=== PATIENT | male | born 1975 | race Caucasian/White ===

== ENCOUNTER 2019-03-23 08:08 | Emergency (ER) | payer SELFPAY ==
--- NOTE | 2019-03-23 08:24 | EDM.PDOC ---
ED HPI GENERAL MEDICAL PROBLEM - General Chief Complaint: ENT Problem Stated Complaint: ABSCESS TOOTH ON RIGHT SIDE Time Seen by Provider: 03/23/19 08:15 Source of Information: Reports: Patient History Limitations: Reports: No Limitations - History of Present Illness INITIAL COMMENTS - FREE TEXT/NARRATIVE: The patient presents with a dental abscess. He said he broke a filling off a couple days ago and the pain has increased and now he has swelling to the right lower front jaw. He has no fever or chills. He has no other symptoms. Onset: Gradual Duration: Day(s): Location: Reports: Face Quality: Reports: Sharp Severity: Severe Improves with: Reports: None Worsens with: Reports: None Associated Symptoms: Reports: No Other Symptoms Right Face/Facial Pain Score (Numeric/FACES): 10 - Related Data Allergies Allergy/AdvReac Type Severity Reaction Status Date / Time No Known Allergies Allergy Verified 03/23/19 08:19 Home Meds: Home Meds Hydrocodone/Acetaminophen [Hydrocodon-Acetaminophen 5-325] 1 - 2 each PO Q6HR PRN #20 tablet 03/23/19 [Rx] Montelukast [Singulair] 10 mg PO DAILY 03/23/19 [History] Penicillin V Potassium 500 mg PO Q6HR #40 tab 03/23/19 [Rx] ED ROS ENT - Review of Systems Review Of Systems: See Below Constitutional: Reports: No Symptoms HEENT: Reports: Dental Pain Respiratory: Reports: No Symptoms Cardiovascular: Reports: No Symptoms Endocrine: Reports: No Symptoms GI/Abdominal: Reports: No Symptoms ED EXAM, ENT - Physical Exam Exam: See Below Exam Limited By: No Limitations General Appearance: Alert, No Apparent Distress Ears: Normal External Exam Nose: Normal Inspection Mouth/Throat: Other (Edema with pain upon palpation to the right front mandible with pain upon palpation to the premolar in the right lower jaw.) Course - Vital Signs Last Recorded V/S: Last Vital Signs Temp 97.0 F 03/23/19 08:15 Pulse 120 H 03/23/19 08:15 Resp 19 03/23/19 08:15 BP 154/99 H 03/23/19 08:15 Pulse Ox 100 03/23/19 08:15 - Orders/Labs/Meds Orders: Active Orders 24 hr Category Date Time Status cefTRIAXone 1 GM with Lidocaine 1% 2.1 ML IM Med 03/23/19 08:30 Ordered cefTRIAXone [Rocephin] 1 gm Lidocaine 1% [Xylocaine 1%] 2.1 ml IM Q24H - Re-Assessments/Exams Free Text/Narrative Re-Assessment/Exam: 03/23/19 08:21 I ordered a shot of rocephin and I will get him on some pen VK and hydrocodone. Departure - Departure Time of Disposition: 08:25 Disposition: Home, Self-Care 01 Condition: Good Clinical Impression: Dental abscess, Pain, dental - Discharge Information *PRESCRIPTION DRUG MONITORING PROGRAM REVIEWED*: No *COPY OF PRESCRIPTION DRUG MONITORING REPORT IN PATIENT NANCY: No Prescriptions: Hydrocodone/Acetaminophen [Hydrocodon-Acetaminophen 5-325] 1 - 2 each PO Q6HR PRN #20 tablet PRN Reason: Pain Penicillin V Potassium 500 mg PO Q6HR #40 tab Referrals: PCP,Not In Area [Primary Care Provider] - Additional Instructions: Take the penicillin 4 times per day. Take the hydrocodone as needed for pain. You may also try motrin or aleve. Put warm compress on the affected area at least 3 times per day for 15 minutes. Follow up with a dentist this week. Please return if you are worse. - My Orders Last 24 Hours: My Active Orders 03/23/19 08:30 cefTRIAXone 1 GM with Lidocaine 1% 2.1 ML IM cefTRIAXone [Rocephin] 1 gm Lidocaine 1% [Xylocaine 1%] 2.1 ml IM Q24H - Assessment/Plan Last 24 Hours: My Active Orders 03/23/19 08:30 cefTRIAXone 1 GM with Lidocaine 1% 2.1 ML IM cefTRIAXone [Rocephin] 1 gm Lidocaine 1% [Xylocaine 1%] 2.1 ml IM Q24H
[2019-03-23] MEDS ORDERED: cefTRIAXone 1 GM, Lidocaine 1% 2.1 ML IM SCH ×2 (08:30)
== END 2019-03-23 08:38 | disposition home or self-care (01) ==
LOC: JD.ED 08:08
DX: K04.7 Periapical abscess without sinus (principal)
CPT/HCPCS: 96372; 99282; J0696; J2001

== ENCOUNTER 2019-07-01 11:39 | Emergency (ER) | payer SELFPAY ==
[~2019-07-01 11:39] MED LIST: Insulin Glarg,Human.Rec.Analog 100 Unit/ML SUBCUT SCH; Insulin Lispro 100 Units/ML 3 ML Vial SUBCUT SCH
[2019-07-01] MEDS ORDERED: Sodium Chloride 0.9% 1,000 ML IV SCH ×3 (12:30→17:45)
--- NOTE | 2019-07-01 12:34 | EDM.PDOC ---
ED HPI GENERAL MEDICAL PROBLEM - General Chief Complaint: Diabetic Complaint Stated Complaint: DIABETIC/HIGH BLOOD SUGAR Time Seen by Provider: 07/01/19 12:28 Source of Information: Reports: Patient History Limitations: Reports: No Limitations - History of Present Illness INITIAL COMMENTS - FREE TEXT/NARRATIVE: 43-year-old male presents to the ED for evaluation of signs and symptoms of diabetes. He was diagnosed with type 2 diabetes at age 42. He was on Trjenta tabs and took regular insulin prn for elevated blood sugars up until he moved to [place] in December of last year. He therefore has been off all medications since December. Sugars are often running over 300. Today they were 565. His gut nausea vomiting and very lightheaded dizzy when standing. Severe polyuria and polydipsia. Nurses took his sugar here and it's greater than 400. He does have a broken tooth that is causing pain right lower first bicuspid tooth. He does not appear to be actively infected about a third of the tooth is gone due to fracture. Onset: Gradual (Sugars have been gradually escalating over the last couple of weeks but markedly elevated today with a blood sugar reported at home of 567.) Onset Date: 07/01/19 (Initial diagnosis of type 2 diabetes at age 42 year ago.) Duration: Day(s):, Getting Worse Location: Reports: Generalized Quality: Reports: Other (Otherwise weakness with associated development of nausea and vomiting. This was predated by severe polyuria polydipsia due to uncontrolled type 2 diabetes.) Severity: Moderate Improves with: Reports: None Worsens with: Reports: None Context: Denies: Activity, Exercise, Lifting, Sick Contact, Trauma, Other Associated Symptoms: Reports: Malaise, Nausea/Vomiting, Weakness (Today). Denies: No Other Symptoms, Confusion, Chest Pain, Cough, cough w sputum, Diaphoresis, Fever/Chills, Headaches, Loss of Appetite, Rash, Seizure, Shortness of Breath, Syncope Treatments CREDIT CARD ANALYST: Reports: Other (see below) (None.) Back Pain Score (Numeric/FACES): 8 - Related Data Allergies Allergy/AdvReac Type Severity Reaction Status Date / Time No Known Allergies Allergy Verified 07/01/19 11:53 Home Meds: Home Meds Insulin Glarg,Human.Rec.Analog [Lantus Solostar] 12 unit SUBCUT DAILY #1 pen 12/13 [Rx] Past Medical History HEENT History: Reports: Impaired Vision Cardiovascular History: Reports: None Respiratory History: Reports: None Gastrointestinal History: Reports: None Genitourinary History: Reports: None Neurological History: Reports: None Psychiatric History: Reports: None Endocrine/Metabolic History: Reports: Diabetes, Type II, Obesity/BMI 30+ Hematologic History: Reports: None Immunologic History: Reports: None Oncologic (Cancer) History: Reports: None Dermatologic History: Reports: None - Infectious Disease History Infectious Disease History: Reports: None - Past Surgical History Musculoskeletal Surgical History: Reports: Arthroscopic Knee Social & Family History - Tobacco Use Smoking Status *Q: Never Smoker - Caffeine Use Caffeine Use: Reports: Coffee - Recreational Drug Use Recreational Drug Use: No - Living Situation & Occupation Living situation: Reports: Occupation: Employed (Self-employed) ED ROS GENERAL - Review of Systems Review Of Systems: See Below Constitutional: Reports: Malaise, Weakness, Fatigue, Weight Loss. Denies: Fever , Chills HEENT: Reports: Dental Pain (He has pain coming from his right lower first bicuspid tooth for the last few days.) Respiratory: Reports: No Symptoms Cardiovascular: Reports: Dyspnea on Exertion, Lightheadedness. Denies: Blood Pressure Problem, Claudication, Edema, Orthopnea Endocrine: Reports: High Glucose, Polydypsia, Polyuria GI/Abdominal: Reports: Other : Reports: Frequency (No previous abdominal surgeries.), Other Musculoskeletal: Reports: No Symptoms (Nocturia 4.) Skin: Reports: No Symptoms Neurological: Reports: Dizziness Psychiatric: Reports: No Symptoms (Lightheaded and dizzy with standing today.) Hematologic/Lymphatic: Reports: No Symptoms Immunologic: Reports: No Symptoms ED EXAM GENERAL NO PERIP PULSE - Physical Exam Exam: See Below Exam Limited By: No Limitations General Appearance: Alert, WD/WN, No Apparent Distress, Other (Temperatures 36.0 which is not likely true. Heart rate at the bedside was 125. Respiratory distress 20 with O2 sats of 96% on room air. BP slightly elevated at 127/97. I do not smell ketones on the patient's breath.) Eye Exam: Bilateral Eye: Normal Inspection Throat/Mouth: Other Head: Atraumatic, Normocephalic (Tongue is dry and coated and shrunken.) Neck: Normal Inspection, Supple, Non-Tender, Full Range of Motion. No: Carotid Bruit, Lymphadenopathy (L), Lymphadenopathy (R) Respiratory/Chest: No Respiratory Distress, Lungs Clear, Normal Breath Sounds, No Accessory Muscle Use, Respiratory Distress (Mild tachypnea) Cardiovascular: Normal Peripheral Pulses, No Edema, No Gallop (Resting tachycardia), No Murmur, No Rub, Tachycardia GI/Abdominal: Normal Bowel Sounds, Soft, Non-Tender, No Organomegaly, No Abnormal Bruit, No Mass, Pelvis Stable, Other (Mildly obese. No surgical scars) Back Exam: Normal Inspection, Full Range of Motion. No: CVA Tenderness (L), CVA Tenderness (R) Extremities: Normal Inspection, Normal Range of Motion, Non-Tender. No: Pedal Edema Neurological: Alert, Oriented, CN II-XII Intact, Normal Cognition Psychiatric: Normal Affect, Normal Mood Skin Exam: Warm, Dry, Intact, Normal Color, No Rash EKG INTERPRETATION EKG Date: 07/01/19 Time: 12:53 Rhythm: NSR Rate (Beats/Min): 97 [place]: LAD-Left [place] Deviation P-Wave: Enlarged (-27) QRS: Other (consider left atrial hypertrophy pattern Q waves leads V1 and V2 consider old anteroseptal myocardial infarction. Also Q waves in lead 3 and likely and aVF consider old inferior wall myocardial infarction. Diffuse mildly decreased voltage in the limb leads.) ST-T: Normal QT: Normal EKG Interpretation Comments: Abnormal ECG. Course - Vital Signs Last Recorded V/S: Last Vital Signs Temp 36.0 C 07/01/19 11:49 Pulse 125 H 07/01/19 11:49 Resp 20 07/01/19 11:49 BP 127/97 H 07/01/19 11:49 Pulse Ox 96 07/01/19 11:49 - Orders/Labs/Meds Orders: Active Orders 24 hr Category Date Time Status EKG Documentation Completion [RC] STAT Care 07/01/19 12:30 Active Insulin Lispro [HumaLOG] Med 07/01/19 00:00 Active 0 unit SUBCUT ASDIRECTED Medication Orders Insulin Human Lispro (Humalog) 0 unit SUBCUT ASDIRECTED Stop: 07/15/19 23:59 Labs: Laboratory Tests 07/01/19 07/01/19 07/01/19 Range/Units 12:10 12:10 12:10 WBC 8.46 (4.23-9.07) K/mm3 RBC 5.79 (4.63-6.08) M/mm3 Hgb 17.8 H (13.7-17.5) gm/dl Hct 48.5 (40.1-51.0) % MCV 83.8 (79.0-92.2) fl MCH 30.7 (25.7-32.2) pg MCHC 36.7 H (32.2-35.5) g/dl RDW Std Deviation 37.7 (35.1-43.9) fL Plt Count 203 (163-337) K/mm3 MPV 9.3 L (9.4-12.3) fl Neutrophils % (Manual) 64 H (40-60) % Band Neutrophils % 0 (0-10) % Lymphocytes % (Manual) 27 (20-40) % Atypical Lymphs % 0 % Monocytes % (Manual) 7 (2-10) % Eosinophils % (Manual) 2 (0.8-7.0) % Basophils % (Manual) 0 L (0.2-1.2) Platelet Estimate Adequate RBC Morph Comment Normal ESR 7 (0-15) mm/hr PT (9.7-12.0) SECONDS INR Sodium 133 L (136-145) mEq/L Potassium 4.3 (3.5-5.1) mEq/L Chloride 99 (98-107) mEq/L Carbon Dioxide 21 (21-32) mEq/L Anion Gap 17.3 H (5-15) BUN 16 (7-18) mg/dL Creatinine 1.0 (0.7-1.3) mg/dL Est Cr Clr Drug Dosing 97.21 mL/min Estimated GFR (MDRD) > 60 (>60) mL/min BUN/Creatinine Ratio 16.0 (14-18) Glucose 470 H (74-106) mg/dL POC Glucose (70-105) mg/dL Hemoglobin A1c (4.50-6.20) % Serum Osmolality 302 H (280-300) mosm/kg Lactic Acid (0.4-2.0) mmol/L Calcium 8.5 (8.5-10.1) mg/dL Phosphorus 3.3 (2.6-4.7) mg/dL Magnesium 1.8 (1.8-2.4) mg/dl Total Bilirubin 0.8 (0.2-1.0) mg/dL AST 22 (15-37) U/L ALT 46 (16-63) U/L Alkaline Phosphatase 93 (46-116) U/L Troponin I < 0.017 (0.00-0.056) ng/mL C-Reactive Protein 0.3 (<1.0) mg/dL Total Protein 7.0 (6.4-8.2) g/dl Albumin 3.7 (3.4-5.0) g/dl Globulin 3.3 gm/dL Albumin/Globulin Ratio 1.1 (1-2) TSH 3rd Generation 0.670 (0.358-3.74) uIU/mL Urine Color (Yellow) Urine Appearance (Clear) Urine pH (5.0-8.0) Ur Specific [place] (1.005-1.030) Urine Protein (Negative) Urine Glucose (UA) (Negative) Urine Ketones (Negative) Urine Occult Blood (Negative) Urine Nitrite (Negative) Urine Bilirubin (Negative) Urine Urobilinogen (0.2-1.0) Ur Leukocyte Esterase (Negative) Urine RBC (0-5) /hpf Urine WBC (0-5) /hpf Ur Squamous Epith Cells (0-5) /hpf Urine Bacteria (FEW) /hpf Urine Mucus (FEW) /hpf Ketones (0.0-0.3) mM 07/01/19 07/01/19 07/01/19 Range/Units 12:10 12:10 12:10 WBC (4.23-9.07) K/mm3 RBC (4.63-6.08) M/mm3 Hgb (13.7-17.5) gm/dl Hct (40.1-51.0) % MCV (79.0-92.2) fl MCH (25.7-32.2) pg MCHC (32.2-35.5) g/dl RDW Std Deviation (35.1-43.9) fL Plt Count (163-337) K/mm3 MPV (9.4-12.3) fl Neutrophils % (Manual) (40-60) % Band Neutrophils % (0-10) % Lymphocytes % (Manual) (20-40) % Atypical Lymphs % % Monocytes % (Manual) (2-10) % Eosinophils % (Manual) (0.8-7.0) % Basophils % (Manual) (0.2-1.2) Platelet Estimate RBC Morph Comment ESR (0-15) mm/hr PT 10.1 (9.7-12.0) SECONDS INR < 0.93 Sodium (136-145) mEq/L Potassium (3.5-5.1) mEq/L Chloride (98-107) mEq/L Carbon Dioxide (21-32) mEq/L Anion Gap (5-15) BUN (7-18) mg/dL Creatinine (0.7-1.3) mg/dL Est Cr Clr Drug Dosing mL/min Estimated GFR (MDRD) (>60) mL/min BUN/Creatinine Ratio (14-18) Glucose (74-106) mg/dL POC Glucose (70-105) mg/dL Hemoglobin A1c 8.90 H (4.50-6.20) % Serum Osmolality (280-300) mosm/kg Lactic Acid (0.4-2.0) mmol/L Calcium (8.5-10.1) mg/dL Phosphorus (2.6-4.7) mg/dL Magnesium (1.8-2.4) mg/dl Total Bilirubin (0.2-1.0) mg/dL AST (15-37) U/L ALT (16-63) U/L Alkaline Phosphatase (46-116) U/L Troponin I (0.00-0.056) ng/mL C-Reactive Protein (<1.0) mg/dL Total Protein (6.4-8.2) g/dl Albumin (3.4-5.0) g/dl Globulin gm/dL Albumin/Globulin Ratio (1-2) TSH 3rd Generation (0.358-3.74) uIU/mL Urine Color (Yellow) Urine Appearance (Clear) Urine pH (5.0-8.0) Ur Specific [place] (1.005-1.030) Urine Protein (Negative) Urine Glucose (UA) (Negative) Urine Ketones (Negative) Urine Occult Blood (Negative) Urine Nitrite (Negative) Urine Bilirubin (Negative) Urine Urobilinogen (0.2-1.0) Ur Leukocyte Esterase (Negative) Urine RBC (0-5) /hpf Urine WBC (0-5) /hpf Ur Squamous Epith Cells (0-5) /hpf Urine Bacteria (FEW) /hpf Urine Mucus (FEW) /hpf Ketones 0.31 (0.0-0.3) mM 07/01/19 07/01/19 07/01/19 Range/Units 12:42 12:45 15:48 WBC (4.23-9.07) K/mm3 RBC (4.63-6.08) M/mm3 Hgb (13.7-17.5) gm/dl Hct (40.1-51.0) % MCV (79.0-92.2) fl MCH (25.7-32.2) pg MCHC (32.2-35.5) g/dl RDW Std Deviation (35.1-43.9) fL Plt Count (163-337) K/mm3 MPV (9.4-12.3) fl Neutrophils % (Manual) (40-60) % Band Neutrophils % (0-10) % Lymphocytes % (Manual) (20-40) % Atypical Lymphs % % Monocytes % (Manual) (2-10) % Eosinophils % (Manual) (0.8-7.0) % Basophils % (Manual) (0.2-1.2) Platelet Estimate RBC Morph Comment ESR (0-15) mm/hr PT (9.7-12.0) SECONDS INR Sodium (136-145) mEq/L Potassium (3.5-5.1) mEq/L Chloride (98-107) mEq/L Carbon Dioxide (21-32) mEq/L Anion Gap (5-15) BUN (7-18) mg/dL Creatinine (0.7-1.3) mg/dL Est Cr Clr Drug Dosing mL/min Estimated GFR (MDRD) (>60) mL/min BUN/Creatinine Ratio (14-18) Glucose 323 H (74-106) mg/dL POC Glucose (70-105) mg/dL Hemoglobin A1c (4.50-6.20) % Serum Osmolality (280-300) mosm/kg Lactic Acid 1.4 (0.4-2.0) mmol/L Calcium (8.5-10.1) mg/dL Phosphorus (2.6-4.7) mg/dL Magnesium (1.8-2.4) mg/dl Total Bilirubin (0.2-1.0) mg/dL AST (15-37) U/L ALT (16-63) U/L Alkaline Phosphatase (46-116) U/L Troponin I (0.00-0.056) ng/mL C-Reactive Protein (<1.0) mg/dL Total Protein (6.4-8.2) g/dl Albumin (3.4-5.0) g/dl Globulin gm/dL Albumin/Globulin Ratio (1-2) TSH 3rd Generation (0.358-3.74) uIU/mL Urine Color Yellow (Yellow) Urine Appearance Clear (Clear) Urine pH 6.0 (5.0-8.0) Ur Specific [place] 1.025 (1.005-1.030) Urine Protein Negative (Negative) Urine Glucose (UA) 2+ H (Negative) Urine Ketones Negative (Negative) Urine Occult Blood Negative (Negative) Urine Nitrite Negative (Negative) Urine Bilirubin Negative (Negative) Urine Urobilinogen 0.2 (0.2-1.0) Ur Leukocyte Esterase Negative (Negative) Urine RBC 0-5 (0-5) /hpf Urine WBC 0-5 (0-5) /hpf Ur Squamous Epith Cells 0-5 (0-5) /hpf Urine Bacteria Few (FEW) /hpf Urine Mucus Few (FEW) /hpf Ketones (0.0-0.3) mM 07/01/19 07/01/19 Range/Units 17:35 18:35 WBC (4.23-9.07) K/mm3 RBC (4.63-6.08) M/mm3 Hgb (13.7-17.5) gm/dl Hct (40.1-51.0) % MCV (79.0-92.2) fl MCH (25.7-32.2) pg MCHC (32.2-35.5) g/dl RDW Std Deviation (35.1-43.9) fL Plt Count (163-337) K/mm3 MPV (9.4-12.3) fl Neutrophils % (Manual) (40-60) % Band Neutrophils % (0-10) % Lymphocytes % (Manual) (20-40) % Atypical Lymphs % % Monocytes % (Manual) (2-10) % Eosinophils % (Manual) (0.8-7.0) % Basophils % (Manual) (0.2-1.2) Platelet Estimate RBC Morph Comment ESR (0-15) mm/hr PT (9.7-12.0) SECONDS INR Sodium (136-145) mEq/L Potassium (3.5-5.1) mEq/L Chloride (98-107) mEq/L Carbon Dioxide (21-32) mEq/L Anion Gap (5-15) BUN (7-18) mg/dL Creatinine (0.7-1.3) mg/dL Est Cr Clr Drug Dosing mL/min Estimated GFR (MDRD) (>60) mL/min BUN/Creatinine Ratio (14-18) Glucose (74-106) mg/dL POC Glucose 369 H 339 H (70-105) mg/dL Hemoglobin A1c (4.50-6.20) % Serum Osmolality (280-300) mosm/kg Lactic Acid (0.4-2.0) mmol/L Calcium (8.5-10.1) mg/dL Phosphorus (2.6-4.7) mg/dL Magnesium (1.8-2.4) mg/dl Total Bilirubin (0.2-1.0) mg/dL AST (15-37) U/L ALT (16-63) U/L Alkaline Phosphatase (46-116) U/L Troponin I (0.00-0.056) ng/mL C-Reactive Protein (<1.0) mg/dL Total Protein (6.4-8.2) g/dl Albumin (3.4-5.0) g/dl Globulin gm/dL Albumin/Globulin Ratio (1-2) TSH 3rd Generation (0.358-3.74) uIU/mL Urine Color (Yellow) Urine Appearance (Clear) Urine pH (5.0-8.0) Ur Specific [place] (1.005-1.030) Urine Protein (Negative) Urine Glucose (UA) (Negative) Urine Ketones (Negative) Urine Occult Blood (Negative) Urine Nitrite (Negative) Urine Bilirubin (Negative) Urine Urobilinogen (0.2-1.0) Ur Leukocyte Esterase (Negative) Urine RBC (0-5) /hpf Urine WBC (0-5) /hpf Ur Squamous Epith Cells (0-5) /hpf Urine Bacteria (FEW) /hpf Urine Mucus (FEW) /hpf Ketones (0.0-0.3) mM Meds: Medications Generic Name Dose Route Start Last Admin Trade Name Freq PRN Reason Stop Dose Admin Insulin Human Lispro 0 unit 07/01/19 00:00 Humalog SUBCUT 07/15/19 23:59 ASDIRECTED Discontinued Medications Generic Name Dose Route Start Last Admin Trade Name Earlq PRN Reason Stop Dose Admin Sodium Chloride 1,000 mls @ 999 mls/hr 07/01/19 12:30 07/01/19 12:42 Normal Saline IV 999 mls/hr ASDIRECTED VICKY Administration Insulin Human Regular 100 unit 100 mls @ 217.72 mls/hr 07/01/19 14:15 / Sodium Chloride IV TITRATE VICKY Protocol 2 UNITS/KG/HR Sodium Chloride 1,000 mls @ 999 mls/hr 07/01/19 14:15 07/01/19 14:37 Normal Saline IV 999 mls/hr ASDIRECTED VICKY Administration Insulin Human Regular 100 unit 100 mls @ 2 mls/hr 07/01/19 14:45 07/01/19 14: 49 / Sodium Chloride IV 2 unit/hr ASDIRECTED VICKY 2 mls/hr Administration 2 UNIT/HR Sodium Chloride 1,000 mls @ 1,000 mls/hr 07/01/19 17:45 07/01/19 17:45 Normal Saline IV 1,000 mls/hr ASDIRECTED VICKY Administration Insulin Glargine 12 unit 07/01/19 00:00 Lantus SUBCUT 09/22/19 23:59 DAILY Insulin Glargine 10 unit 07/01/19 17:55 07/01/19 18:08 Lantus SUBCUT 07/01/19 17:56 10 units ONETIME ONE Administration Metoclopramide HCl 10 mg 07/01/19 12:37 07/01/19 12:42 Reglan IVPUSH 07/01/19 12:38 10 mg ONETIME ONE Administration - Radiology Interpretation Free Text/Narrative:: 43-year-old male who is diagnosed with a type 2 diabetes at age 42. He is now 41-1/2. He was placed on Tradjenta tablets and use regular insulin 10-15 units per meal when necessary basis for sugar control. He presents because of a blood sugar 565 at home this morning. Blood sugar here was greater than 400. He has all the signs symptoms of diabetes with polyuria polydipsia. He states his sugars were running 2-300 over the last 4-6 months but for whatever reason of slipped up into the 4 500s in the last week. Associated development of nausea and vomiting this morning likely due to acidosis. He is not ketotic. An IV normal saline at open. Labs to be collected including a glycosylated protein magnesium, and phosphorus level. - Re-Assessments/Exams Free Text/Narrative Re-Assessment/Exam: 07/01/19 13:10 Hematology is back showing a normal white count at 8.46. Differential shows 64% neutrophils and no bands. Hemoglobin is elevated at 17.8 with hematocrit of 48.5 indicating some degree of hemoconcentration. Platelet count is 203,000. PT 10.1 with an INR of less than 0.9. Is x-ray reveals no significant cardiomegaly. Diffuse vascular congestion pattern. Right pulmonary artery is mildly prominent. 07/01/19 14:10 Sedimentation rate came back at 7. Sodium is 133 slightly low potassium 4.3. Chloride is 99 with a bicarbonate 21. Anion gap is mildly elevated at 17.3. BUN is 16 with a creatinine of 1.0. Estimated GFR is greater than 60. Glucose is 470. Hemoglobin A1c is 8.90. Serum osmolality slightly elevated at 302. Lactic acid 1.4 calcium 8.5 phosphorus is 3.3. Magnesium is 1.8 with a bilirubin of 0.8. AST is 22 with an ALT of 46. Alk phosphatase is 93. Troponin I is less than 0.017. C-reactive protein is 0.3. Total protein is 7.0 with an albumin fraction of 3.7. TSH is 0.670 normal. Urinalysis shows 2+ glucosuria no proteinuria and no signs of infection. Serum ketones mildly elevated at 0.31. I will start him on an insulin drip at 2 units an hour as he is extremely sensitive to insulin. Check every hourly. 07/01/19 16:05 Blood sugar at 1548 hrs. was 323 . Serum osmolality was 302. Lactic acid was 1.4. She really doesn't wish to come into the hospital due to lack of insurance. I will have sr. social media & mobile manager see him with a view to try and arranging insulin for him. Of Levemir or Lantus insulin daily as a basal insulin you dose and then Humalog as needed with meals. He will need to follow- up with a primary care physician. The plan will be to continue IV fluids checking his blood sugar every hour on 2 units of insulin per hour at this time. I suspect within 3 hours he will be back down to normal range and rehydrated as he is not very acidotic. 07/01/19 17:32 and has been seen by sr. social media & mobile manager and the diabetic teaching nurse. They suggest that I write a prescription for long-acting insulin and short-acting insulin and will place him on a sliding scale for short acting insulin usage. He is due for a blood sugar at this time. If he has below 200 I will give him a small dose of basal insulin at this time and he will be able to be discharged to home. He has an appointment set up with nurse practitioner Tabitha Meza tomorrow. 07/01/19 17:56 blood sugar came back elevated at 269. This is after he had eaten a fairly large dinner. I will therefore leave him on 2 units an hour for the next hour. I'm going to give him a dose of basal insulin i.e. Lantus 10 units subcutaneously now. I will then write a sliding scale for him to use the Humalog R insulin as needed for meals. 07/01/19 18:50 sugar is down to 339. Going to discontinue his IV insulin. He has had Lantus 10 units given subcutaneously and will use humalog insulin per sliding scale that I provided for him at home. He has an appointment to follow- up with Tabitha Meza to establish care tomorrow. Insulins were provided to him through the community health educator nurse. abrasive worker is also become involved to help with the cost of medication. Departure - Departure Time of Disposition: 18:51 Disposition: Home, Self-Care 01 Condition: Fair Clinical Impression: Ketosis due to diabetes, Volume depletion Uncontrolled type 2 diabetes mellitus Qualifiers: Glycemic state: with hyperglycemia Qualified Code(s): E11.65 - Type 2 diabetes mellitus with hyperglycemia - Discharge Information *PRESCRIPTION DRUG MONITORING PROGRAM REVIEWED*: Not Applicable *COPY OF PRESCRIPTION DRUG MONITORING REPORT IN PATIENT NANCY: Not Applicable Prescriptions: Insulin Glarg,Human.Rec.Analog [Lantus Solostar] 12 unit SUBCUT DAILY #1 pen Instructions: Type 2 Diabetes Mellitus, Diagnosis, Adult Referrals: PCP,None [Primary Care Provider] - Forms: ED Department Discharge Additional Instructions: Evaluation in the emergency him today in regards to type 2 diabetes uncontrolled. You diagnosed with type 2 diabetes at age 42 and have enjoyed a bit of a honeymoon period since December of last year where your blood sugars seem to come under fairly good control with diet and probably weight loss. Development of significant signs and symptoms of diabetes over the last couple of weeks with polyuria and thirsty all the time and voiding all the time. He is infected cause dehydration which was corrected with 2-1/2 L of normal saline in the ED today. The highest blood sugar identified in the ED was 470. An insulin drip at 2 units an hour and blood sugars came down to 339 at the time of discharge. This was after eating a fairly large meal as well. 10 units of Lantus her long-acting insulin in the emergency department. We'll need to check her blood sugar about 8:00 tonight and about once before going to bed. Starting with Lantus or long-acting basal insulin which last close to 36 hours in the system 12 units daily. If in 3 days blood sugars are remaining higher than 200 and you need to adjust it upwards by another 4 units every 3 days until blood sugar control is achieved. You also were given a bile of rapid acting insulin or regular insulin. Adjust this by giving yourself 10-15 units with each meal counting your carbs units. Try and check your blood sugars 4 times daily and marked them down so that we can identify insulin requirements just using the sliding scale below until we can achieve satisfactory blood sugar levels. If blood sugar is less than 140 oh insulin is required. If blood sugar is 141-200 give 4 units of regular insulin subcutaneously If blood sugar is 201 to 280 give 8 units of regular insulin If blood sugar is 181 to 330 give 10 units of regular insulin If blood sugar is 331 to 380 give 12 units of regular insulin. If blood sugar is 381 to 420 take 16 units of regular insulin. Follow-up with physician assistant inventory manager Tabitha Jiménez tomorrow as appointment has been prearranged. Sepsis Event Note - Evaluation Sepsis Screening Result: No Definite Risk - Focused Exam Vital Signs: Vital Signs Temp Pulse Resp BP Pulse Ox 07/01/19 11:49 36.0 C 125 H 20 127/97 H 96 Date Exam was Performed: 07/01/19 Time Exam was Performed: 22:43 - My Orders Last 24 Hours: My Active Orders 07/01/19 00:00 Insulin Lispro [HumaLOG] 0 unit SUBCUT ASDIRECTED 07/01/19 12:30 EKG Documentation Completion [RC] STAT - Assessment/Plan Last 24 Hours: My Active Orders 07/01/19 00:00 Insulin Lispro [HumaLOG] 0 unit SUBCUT ASDIRECTED 07/01/19 12:30 EKG Documentation Completion [RC] STAT
[2019-07-01] MEDS ORDERED: Metoclopramide 10 MG/2 ML SDV IVPUSH ONE (12:37)
[2019-07-01 13:03] LABS: HEMOGLOBIN A1C 8.9 % (4.50-6.20)
--- NOTE | 2019-07-01 15:00 | CR ---
Chest: Portable view of the chest was obtained. Comparison: No prior chest x-ray. Heart size and mediastinum are normal. Lungs are clear with no acute parenchymal change. Bony structures are unremarkable. Impression: 1. Nothing acute is appreciated on portable chest x-ray. Diagnostic code #1 This report was dictated in [place] Standard Time
[2019-07-01] MEDS ORDERED: Insulin Glarg,Human.Rec.Analog 100 Unit/ML SUBCUT ONE (17:55)
== END 2019-07-01 19:20 | disposition home or self-care (01) ==
LOC: JD.ED 11:39
DX: E11.10 Type 2 diabetes mellitus with ketoacidosis without coma (principal); E11.65 Type 2 diabetes mellitus with hyperglycemia; E86.9 Volume depletion, unspecified; E66.9 Obesity, unspecified; Z68.35 Body mass index [BMI] 35.0-35.9, adult; Z79.4 Long term (current) use of insulin
CPT/HCPCS: 36415; 71045; 80053; 81001; 82009; 82947; 82962; 83036; 83605; 83735; 83930; 84100; 84443; 84484; 85007; 85027; 85610; 85652; 86140; 93005; 96361; 96365; 96366; 96375; 99285; J1815; J2765; J7030; J7050; 93010; 99284

== ENCOUNTER 2019-10-02 13:36 | Emergency (ER) | payer MEDICAID, OTHER ==
[2019-10-02] MEDS ORDERED: Doxycycline 100 MG Cap PO ONE (14:15)
[2019-10-02] MEDS ORDERED: Acetaminophen/oxyCODONE 325-5 MG Tab PO ONE (14:15)
[2019-10-02] MEDS ORDERED: Lidocaine 1% 10 ML MDV INJECT ONE (14:17)
--- NOTE | 2019-10-02 14:34 | EDM.PDOC ---
ED HPI GENERAL MEDICAL PROBLEM - General Chief Complaint: Skin Complaint Stated Complaint: ARM LAC Time Seen by Provider: 10/02/19 14:00 Source of Information: Reports: Patient History Limitations: Reports: No Limitations - History of Present Illness INITIAL COMMENTS - FREE TEXT/NARRATIVE: Patient a 43-year-old male who presents to the ER with complaints of redness, pain, and swelling to his left forearm. Patient states last Monday he is cut his arm on the metal of a car frame. 2 days ago he noticed that there was some swelling in the area where he scratched his arm.. Last night he was poking the area with a lancet was able to get some drainage out of it. He has no history of MRSA. His last tetanus vaccination was approximately 1 year ago. He has had no fever, nausea, or vomiting. Patient is type II diabetic. States his blood sugars have been normal. Left Arm Pain Score (Numeric/FACES): 10 - Related Data Allergies Allergy/AdvReac Type Severity Reaction Status Date / Time No Known Allergies Allergy Verified 10/02/19 14:01 Home Meds: Home Meds Acetaminophen/oxyCODONE [Percocet 325-5 MG] 1 each PO Q6H PRN #6 tab 10/02/19 [ Rx] DULoxetine [Cymbalta] 20 mg PO DAILY 10/02/19 [History] Doxycycline [Vibramycin] 100 mg PO BID 1 Days #19 cap 10/02/19 [Rx] Hydrocodone/Acetaminophen [[place] 10-325 Tablet] 1 each PO TID PRN 10/02/19 [ History] Insulin Glarg,Human.Rec.Analog [Lantus Solostar] 80 unit SUBCUT DAILY 10/02/19 [ History] Insulin Lispro [HumaLOG] 1 - 20 units SUBCUT QIDACANDBED 10/02/19 [History] Past Medical History HEENT History: Reports: Impaired Vision Cardiovascular History: Reports: None Respiratory History: Reports: None Gastrointestinal History: Reports: None Genitourinary History: Reports: None Neurological History: Reports: None Psychiatric History: Reports: None Endocrine/Metabolic History: Reports: Diabetes, Type II, Obesity/BMI 30+ Hematologic History: Reports: None Immunologic History: Reports: None Oncologic (Cancer) History: Reports: None Dermatologic History: Reports: None - Infectious Disease History Infectious Disease History: Reports: None - Past Surgical History Musculoskeletal Surgical History: Reports: Arthroscopic Knee Social & Family History - Tobacco Use Smoking Status *Q: Never Smoker Second Hand Smoke Exposure: No - Caffeine Use Caffeine Use: Reports: Coffee, Soda - Living Situation & Occupation Living situation: Reports: Occupation: Employed (Self-employed) ED ROS GENERAL - Review of Systems Review Of Systems: Comprehensive ROS is negative, except as noted in HPI. ED EXAM, SKIN/RASH Exam: See Below Exam Limited By: No Limitations General Appearance: Alert, WD/WN, No Apparent Distress Respiratory/Chest: No Respiratory Distress, Lungs Clear, Normal Breath Sounds, No Accessory Muscle Use, Chest Non-Tender Cardiovascular: Normal Peripheral Pulses, Regular Rate, Rhythm, No Edema, No Gallop, No JVD, No Murmur, No Rub Neurological: Alert, Oriented, CN II-XII Intact, Normal Cognition, Normal Gait, Normal Reflexes, No Motor/Sensory Deficits Psychiatric: Normal Affect, Normal Mood Skin: Other (3 cm localized erythematous area of induration to the left anteromedial forearm. Area is firm to palpation. No signs of red streaking to suggest lymphangitis present.) ED SKIN PROCEDURES - I&D Site: left ventramedial forearm Skin Prep: Providone-Iodine (Betadine) Local Anesthesia: Lidocaine: 1% Plain Local Anesthetic Volume: 5cc Area Incised With: 11 Blade Drainage: Purulent, Bloody, Large Amount Probed to Break Up Loculations: Yes Packed With: 1/4 in. Iodoform Sterile Dressing: Other (Stick Telfa and gauze wrap) Complications: No Progress/Comments: Patient verbalized significant relief of the pain and pressure. Course - Vital Signs Last Recorded V/S: Last Vital Signs Temp 97.4 F 10/02/19 13:55 Pulse 114 H 10/02/19 13:55 Resp 20 10/02/19 13:55 BP 143/89 H 10/02/19 13:55 Pulse Ox 95 10/02/19 13:55 - Orders/Labs/Meds Orders: Active Orders 24 hr Category Date Time Status CULTURE WOUND [RM] Stat Lab 10/02/19 14:56 Received Meds: Medications Discontinued Medications Generic Name Dose Route Start Last Admin Trade Name Freq PRN Reason Stop Dose Admin Doxycycline Hyclate 100 mg 10/02/19 14:15 10/02/19 14:27 Vibramycin PO 10/02/19 14:16 100 mg ONETIME ONE Administration Lidocaine HCl 10 ml 10/02/19 14:17 10/02/19 14:27 Xylocaine 1% INJECT 10/02/19 14:18 10 ml ONETIME ONE Administration Oxycodone/Acetaminophen 1 tab 10/02/19 14:15 10/02/19 14:26 Percocet 325-5 Mg PO 10/02/19 14:16 1 tab ONETIME ONE Administration - Re-Assessments/Exams Free Text/Narrative Re-Assessment/Exam: 10/02/19 14:34 Bedside ultrasound was completed and shows a fluid pocket directly below the surface of the skin. We will do an I&D of the abscess with culture of the drainage. Patient will be started on doxycycline. Departure - Departure Time of Disposition: 15:08 Disposition: Home, Self-Care 01 Condition: Fair Clinical Impression: Abscess - Discharge Information *PRESCRIPTION DRUG MONITORING PROGRAM REVIEWED*: Yes *COPY OF PRESCRIPTION DRUG MONITORING REPORT IN PATIENT NANCY: No Prescriptions: Acetaminophen/oxyCODONE [Percocet 325-5 MG] 1 each PO Q6H PRN #6 tab PRN Reason: Pain Doxycycline [Vibramycin] 100 mg PO BID 1 Days #19 cap Instructions: Skin Abscess Referrals: Stephanie Fuentes NP [Primary Care Provider] - Forms: ED Department Discharge Additional Instructions: You were seen in the emergency department today for an abscess on your left forearm. An I&D was completed which drained the abscess of the infectious fluid. This fluid has been sent for culture. You been placed on doxycycline. Take this twice daily for 10 days. Your first dose was given in the ER. If the culture should grow out a microorganism that is not susceptible to doxycycline, you will be notified and your antibiotic will be changed. Recommend that you take [id number] Tylenol or ibuprofen as needed for the pain. For pain not relieved by these measures, you have also been given a prescription for Percocet. Use this medication sparingly and do not drive for 12 hours after taking this medication. Recommend that she call to schedule a follow-up appointment with your primary care provider for this Monday to ensure that the wound is healing well. If you should experience any worsening symptoms such as increased swelling, redness moving up or down your arm, fever, chills, nausea, or vomiting, I would recommend that you return to the emergency department. Sepsis Event Note - Evaluation Sepsis Screening Result: No Definite Risk - Focused Exam Vital Signs: Vital Signs Temp Pulse Resp BP Pulse Ox 10/02/19 13:55 97.4 F 114 H 20 143/89 H 95 Date Exam was Performed: 10/02/19 Time Exam was Performed: 20:43 - My Orders Last 24 Hours: My Active Orders 10/02/19 14:56 CULTURE WOUND [RM] Stat - Assessment/Plan Last 24 Hours: My Active Orders 10/02/19 14:56 CULTURE WOUND [RM] Stat
== END 2019-10-02 15:25 | disposition home or self-care (01) ==
LOC: JD.ED 13:36
DX: L02.414 Cutaneous abscess of left upper limb (principal); E11.9 Type 2 diabetes mellitus without complications; E66.9 Obesity, unspecified; Z68.41 Body mass index [BMI] 40.0-44.9, adult; Z79.4 Long term (current) use of insulin; Z79.899 Other long term (current) drug therapy
CPT/HCPCS: 10061; 87070; 99283; A9270; J2001